=== PATIENT | male | born 1965 | race Caucasian/White ===

== ENCOUNTER 2019-08-20 16:14 | Emergency (ER) | payer OTHER, SELFPAY ==
[2019-08-20] VITALS (8 sets, daily range): BP systolic 99–165; BP diastolic 70–92; PULSE 80–117; RESP 15–25; TEMP 36.6; O2SAT 92–100
--- NOTE | ~2019-08-20 | CT_ITS ---
EXAMINATION: CT brain wo con INDICATION: Left arm weakness, fall COMPARISON: None TECHNIQUE: Standard unenhanced head CT. The dose-length product (DLP) was 681.00 mGy-cm. The mA was a djusted according to patient size. Iterative reconstruction technique was employed. FINDINGS: There is no intracranial hemorrhage or acute infarction. There is a 2.2 x 2.1 cm cystic mas s in the right frontal lobe with surrounding vasogenic edema. There is a tiny crescentic hyperattenua ting component along the inferior margin of the mass. The ventricles are normal. There is no abnormal mass effect or midline shift. The basal cisterns are patent. The orbits are normal. The paranasal si nuses, mastoids and calvarium are normal. IMPRESSION: 1. Cystic mass of the right frontal lobe with surrounding vasogenic edema, consistent with primary or metastatic neoplasm. These findings were discussed with Dr. Santa Lindsay MD in the Emergency De partment at 1826 hours on 08/20/2019. Reviewed, dictated and finalized at location A. IMPRESSION: 1. Cystic mass of the right frontal lobe with surrounding vasogenic edema, cons istent with primary or metastatic neoplasm. These findings were discussed with Dr. Santa Lindsay MD in the Emergency Department at 1826 hours on 08/20/2019 .
--- NOTE | ~2019-08-20 | XR_ITS ---
EXAMINATION: XR chest 1V portable INDICATION: Hypoxia TECHNIQUE: Portable AP chest at 1920 hours COMPARISON: None available FINDINGS: There is a 3.5 cm mass in the right midlung zone. The lungs are free of acute opacities. Th ere is no pleural effusion or pneumothorax. The cardiomediastinal silhouette is normal. Surgical clip s are noted in the upper abdomen. IMPRESSION: 1. 3.5 cm mass of the right midlung zone. Given the intracranial mass noted on today's CT, finding is most concerning for primary bronchogenic carcinoma. Reviewed, dictated and finalized at location A.
--- NOTE | ~2019-08-20 | CT_ITS ---
EXAMINATION: CT cervical spine wo con DATE: 08/20/2019 18:14 INDICATION: Left arm weakness TECHNIQUE: Computed tomography (CT) of the cervical spine was performed without intravenous contrast. The dose-length product (DLP) was 245.36 mGy-cm. Automated exposure control and iterative reconstruc tion technique were employed. COMPARISON: None FINDINGS: There is no fracture, dislocation, or subluxation. There is moderate loss of intervertebral disc space height at C3-4 and C6-7. The odontoid is intact. 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 There is fibrous union of the posterior C1 arch. The prevertebral soft tissues a re normal. IMPRESSION: 1. Advanced degenerative change at C2-3 without acute findings. Reviewed, dictated and finalized at location A.
--- NOTE | ~2019-08-20 | XR_ITS ---
EXAMINATION: XR forearm LT 2V INDICATION: Left forearm pain TECHNIQUE: Three views of the left forearm are obtained. COMPARISON: None available FINDINGS: There is no fracture, dislocation, or subluxation. The bones, soft tissues, and joint space s are normal. IMPRESSION: 1. No acute osseous abnormality. Reviewed, dictated and finalized at location A.
--- NOTE | ~2019-08-20 | XR_ITS ---
EXAMINATION: XR humerus LT INDICATION: Left arm pain TECHNIQUE: Two views of the left humerus are obtained. COMPARISON: None available FINDINGS: There is no fracture, dislocation, or subluxation. The bones, soft tissues, and joint space s are normal. IMPRESSION: 1. No acute osseous abnormality. Reviewed, dictated and finalized at location A.
--- NOTE | 2019-08-20 17:06 | ED.GENADULT ---
HPI - General Adult General Chief complaint: Extremity Injury, Upper Stated complaint: Left Arm Numbness Time Seen by Provider: 08/20/19 16:51 Source: patient and family Mode of arrival: ambulatory Limitations: no limitations History of Present Illness HPI narrative: This patient is a 54 year old male with history of alcohol abuse, hypertension who presents for evaluation of left upper extremity weakness. Patient's daughter states patient was taken to [facility] yesterday for an evaluatio, of a fall. She states patient was found on kitchen floor yesterday and it was unclear how long he had been down. Patient states he does not remember when he fell. He states he had a CT scan of his brain and he was told he had a brain mass. His daughter brought him to [facility] because he was discharged and he still has left arm numbness and weakness. His weakness has been present since he was found on the floor yesterday. Related Data Home Medications Medication Instructions Recorded Confirmed amlodipine 08/20/19 baclofen mg 08/20/19 budesonide-formoterol [Symbicort] INHALATION 08/20/19 lisinopril 08/20/19 nortriptyline 08/20/19 pravastatin 08/20/19 Allergies Allergy/AdvReac Type Severity Reaction Status Date / Time No Known Allergies Allergy Verified 08/20/19 17:41 Review of Systems Review of Systems: All systems reviewed & are unremarkable except as noted in HPI and below Constitutional: Constitutional: Denies chills and Denies fever(s) Cardiovascular: Cardiovascular: Denies chest pain Respiratory: Respiratory: Denies cough and Denies dyspnea Gastrointestinal: Gastrointestinal: Denies abdominal pain, Denies diarrhea and Denies vomiting Musculoskeletal: Comments: left arm swelling, left arm numbnesss Neurologic: Reports focal weakness (left arm) [facility] Past Medical History Medical History (Updated 08/22/19 @ 00:00 by Salomón Pitts) Alcohol abuse Hypertension Social History Social History (Updated 08/20/19 @ 17:07 by Santa Lindsay MD) Smoking packs per day: 1 Smoking cigarettes per day: 20.0 Alcohol intake: current Alcohol use details: drinks daily Exam Const: General: no acute distress and alert Orientation/consciousness: patient oriented x3 HENMT: Head: normocephalic and atraumatic Mouth: Yes lip normal, Yes tongue normal and Yes oropharynx normal Teeth and gingiva: edentulous Throat: posterior oropharynx normal Eyes: Pupils: Equal, round and reactive pupils present EOM: EOMs intact bilaterally Neck: Neck: normal visual inspection Chest: Chest palpation & inspection: normal inspection of the chest and no tenderness Resp: Effort & Inspection: normal respiratory effort Auscultation: clear to auscultation bilaterally Cardio: Rate: regular rate Rhythm: regular rhythm GI: GI Palp: Yes Soft to palpation, No Tenderness to palpation present (GI), No Guarding due to palpation present (GI) and No Rigid due to palpation Skin: Other: bruising to left arm Neuro: General: patient oriented x3 and CN's II-XI intact bilaterally Cranial nerves: Yes Nystagmus not present Speech: normal speech Motor exam (neuro): Abnormal motor strength present (unable to lift left arm against gravity) Sensory Exam: Upper extremity sensory exam abnormal (left arm decreased sensation) Extrem: General: edema left (arm from hand up to shoulder) Psych: Mental Status: mental status grossly normal Course Consultations Consultation #1: I discussed the case with neurosurgery at [facility], Dr. Fernandez who accepts patient to neurosurgery floor Date: 08/20/19 Time: 19:20 Consultation #2: Patient is awaiting a bed at [facility] due to his brain mass for further evaluation. Care turned over to Dr. Lacy Date: 08/20/19 Time: 23:00 Vital Signs Vital signs: Vital Signs Temperature 97.9 F 08/20/19 16:33 Pulse Rate 108 H 08/20/19 16:33 Respiratory Rate 18 08/20/19 16:33 Blood Pressure
[2019-08-20 17:37] LABS: Basophils Absolute Auto 0.1 K/mm3 (0.0-0.1); Basophils Percent Auto 1.2 % (0.2-1.2); Eosinophils Absolute Auto 0.3 K/mm3 (0-0.3); Eosinophils Percent Auto 6.1 % (0-4.4); Hematocrit 34.5 % (42.0-52.0); Hemoglobin 11.6 g/dL (14.0-18.0); Lymphocytes Absolute Auto 1.32 K/mm3 (0.9-3.2); Mean Corpuscular HGB Conc 33.6 g/dl (32-36); Mean Corpuscular Hemoglobin 30.7 pg (26-34); Mean Corpuscular Volume 91.3 fl (80-100); Mean Platelet Volume 10.3 fl (7.4-10.4); Monocytes Absolute Auto 0.4 K/mm3 (0.1-0.6); Monocytes Percent Auto 7.2 % (2.6-8.5); Neutrophils Absolute Auto 2.9 K/mm3 (1.3-6.7); Neutrophils Percent Auto 58.5 % (45.5-73.1); Platelet Count Result 254 k/mm3 (150-375); Red Blood Count 3.78 M/mm3 (4.6-6.20); Red Cell Distribution Width 15.7 % (11.5-14.5); White Blood Count 4.9 K/mm3 (4.5-10.0)
[2019-08-20 17:50] LABS: Ethanol 219 mg/dL (<10); INR 0.9; Magnesium 1.4 mg/dL (1.6-2.3); Partial Thromboplastin Time 25.2 SECONDS (22.3-36.8); Prothrombin Time 11.6 Seconds (11.1-14.7)
[2019-08-20 17:51] LABS: Alanine Aminotransferase 43 U/L (4-50); Albumin Level 4.4 g/dL (3.5-5.1); Alkaline Phosphatase 83 U/L (38-126); Aspartate Amino Transferase 72 U/L (17-59); Bilirubin,Total 0.3 mg/dL (0.2-1.3); Blood Urea Nitrogen 15 mg/dL (9-20); Calcium 9.3 mg/dL (8.4-10.2); Carbon Dioxide 27 mmol/L (22-30); Chloride 108 mmol/L (98-107); Creatine Kinase 197 U/L (55-170); Estimated CRCL calculation 88 ml/min; Estimated Glomerular Filt Rate > 60; Glucose 133 mg/dL (75-110); Potassium 3.7 mmol/L (3.4-5.0); Sodium 144 mmol/L (137-145)
[2019-08-20] MEDS: NICOTINE (*PBKC) 21 MG PATCH 1 PATCH TRANSDERM (19:47)
[2019-08-20 19:54] LABS: Add Urine Microscopic? YES; Appearance Urine Clear (Clear); Bacteria Urine Trace /hpf; Bilirubin Urine Negative (Negative); Blood Urine Negative (Negative); Color Urine Yellow (Yellow); Glucose Urine UA Negative (Negative); Ketones Urine Negative (Negative); Leukocyte Esterase Ur Negative LEU/UL (Negative); Nitrate Urine Negative (Negative); Protein Urine 1+ mg/dL (Negative); RBC Urine 0-2 /hpf (0-2); Specific Grav Ur 1.015 (1.001-1.035); WBC Urine 0-3 /hpf
[2019-08-20] MEDS: LACTATED RINGERS 1,000 ML 999 ML IV CONT (19:56)
[2019-08-20 20:05] LABS: Amphetamine Screen Urine Negative (Negative); Barbiturate Screen Urine Negative (Negative); Benzodiazepines Screen Urine Negative (Negative); Cannabinoid Screen Urine Negative (Negative); Cocaine Screen Urine Negative (Negative); Methadone Screen Urine Negative (Negative); Opiate Screen Urine Negative (Negative); Phencyclidine Screen Urine Negative (Negative)
--- NOTE | 2019-08-21 00:20 | PC.NURSE ---
Called [facility] for updated ETA. ETA [id number]
[2019-08-21 00:22] VITALS: BP 162/93; PULSE 109; RESP 20; O2SAT 98
[2019-08-21 01:20] VITALS: BP 168/71; PULSE 99; RESP 18; O2SAT 100
--- NOTE | 2019-08-21 01:31 | PC.NURSE ---
pt left facility at this time via ems to [place]. thiamine still infusing into pt upon departure.
== END 2019-08-21 01:31 | disposition short-term general hospital (02) ==
PROVIDERS: Emergency Provider General Practice; PCP Physician Assistant
DX: G93.9 Disorder of brain, unspecified (principal); R53.1 Weakness; I10 Essential (primary) hypertension; F17.210 Nicotine dependence, cigarettes, uncomplicated; M47.812 Spondylosis without myelopathy or radiculopathy, cervical region; R91.8 Other nonspecific abnormal finding of lung field; F10.10 Alcohol abuse, uncomplicated; Y90.7 Blood alcohol level of 200-239 mg/100 ml
CPT/HCPCS: 36415; 70450; 71045; 72125; 73060; 73090; 80053; 80307; 81001; 82550; 83735; 85025; 85610; 85730; 96361; 96365; 96366; 99285; A9270; J3411; J3475; J7120; J7121

== ENCOUNTER 2020-01-27 18:23 | Emergency (ER) | payer OTHER, SELFPAY ==
--- NOTE | ~2020-01-27 | XR_ITS ---
EXAMINATION: XR chest 1V EXAM DATE: 01/27/2020 18:56 INDICATION: Cough. History lung cancer. TECHNIQUE: Portable AP frontal chest x-ray was obtained. Comparison is made to prior examination from 08/20/2019. FINDINGS: There is right midlung zone mass measuring about 2 cm. Does appear to be smaller than on th e previous examination. No evidence of acute airspace disease. No pneumothorax or pleural effusion. C ardiomediastinal silhouette is normal. There are no osseous abnormalities identified. IMPRESSION: Decrease in size of right midlung zone mass. No acute findings. Reviewed, dictated and finalized at location A.
[2020-01-27 18:30] VITALS: BP 151/76; PULSE 103; RESP 18; TEMP 36.2; O2SAT 100
--- NOTE | 2020-01-27 18:38 | PC.NURSE ---
Refuses to sit on stretcher. States I'm just here for my chest xray and I'm leaving.
--- NOTE | 2020-01-27 18:46 | ED.GENADULT ---
HPI - General Adult General Chief complaint: Upper Respiratory Infection Stated complaint: cancer patient, cough and cold symptoms Time Seen by Provider: 01/27/20 18:39 Source: patient and family Mode of arrival: ambulatory Limitations: no limitations History of Present Illness HPI narrative: Patient is 54 years old white male history of lung cancer, start on chemotherapy November 2019, last chemotherapy was 4 days ago. Been coughing over the last few days, his oncologist office told him to go and get chest x-ray to rule out the possibility of pneumonia. Patient insisted on not getting anything else except chest x-ray. And he wants as soon as possible. And he will not stay. Patient denying any fever, chills, nausea, vomiting, headache, sore throat, new shortness of breath Related Data Home Medications Medication Instructions Recorded Confirmed amlodipine 08/20/19 baclofen mg 08/20/19 budesonide-formoterol [Symbicort] INHALATION 08/20/19 lisinopril 08/20/19 nortriptyline 08/20/19 pravastatin 08/20/19 Allergies Allergy/AdvReac Type Severity Reaction Status Date / Time No Known Allergies Allergy Verified 01/27/20 18:38 Review of Systems Review of Systems: Narrative: CONSTITUTIONAL: Denies fever, chills, or sweats. EYES: Denies visual changes, redness, or discharge. ENT: Denies rhinorrhea, congestion, sore throat, or otalgia. CARDIOVASCULAR: Denies chest pain, palpitations, or edema. RESPIRATORY: Denies cough or dyspnea. GASTROINTESTINAL: Denies abdominal pain, nausea, vomiting, or diarrhea. GENITOURINARY: Denies dysuria or hematuria. SKIN: Denies rash or itching. MUSCULOSKELETAL: Denies back pain, joint pain, or myalgia. NEUROLOGIC: Denies headache, numbness, or weakness. PSYCHIATRIC: Denies anxiety or depression. PMFSH Past Medical History Medical History Alcohol abuse Hypertension Social History Social History Smoking packs per day: 1 Smoking cigarettes per day: 20.0 Alcohol intake: current Gender identity (if verbalized by the patient): Male Exam Narrative: Exam Narrative: General appearance: Well-developed, well-nourished Skin: Normal color Head: Normocephalic, nontraumatic Eyes: Clear conjunctiva ENT: Oropharynx normal, ears normal, nose normal Neck: Supple, nontender Chest and respiratory: Airway patent, no respiratory distress, no accessory muscle use, few scattered rhonchi and wheezing Heart: Regular rate/rhythm Abdomen: Soft, nontender, no organomegaly, quiet bowel sounds Vascular: Normal peripheral pulses, normal capillary refill. Musculoskeletal: Normal range of motion, nontender back Neurologic: Alert and oriented ?3, [employer] is normal as tested, no gross motor deficit Course Course Emergency Course: Stable Vital Signs Vital signs: Vital Signs Temperature 36.2 C L 01/27/20 18: Pulse Rate 103 H 01/27/20 18:30 Respiratory Rate 18 01/27/20 18:30 Blood Pressure 151/76 H 01/27/20 18:30 Pulse Oximetry 100 01/27/20 18:30 Temperature 36.2 C L 01/27/20 18:30 Pulse Rate 103 H 01/27/20 18:30 Respiratory Rate 18 01/27/20 18:30 Blood Pressure 151/76 H 01/27/20 18:30 Pulse Oximetry 100 01/27/20 18:30 Medical Decision Making MDM Narrative Medical decision making narrative: Currently patient under chemotherapy for lung cancer, was told by his oncologist office to go to the emergency room to rule out the possibility of pneumonia. Patient declined to get any blood work-up or any thing else except for chest x-ray. Chest x-ray showed no acute abnormality. Patient extremely happ
== END 2020-01-27 19:17 | disposition home or self-care (01) ==
PROVIDERS: Emergency Provider Emergency Medicine; PCP Physician Assistant
DX: R05 Cough (principal); C34.90 Malignant neoplasm of unspecified part of unspecified bronchus or lung; I10 Essential (primary) hypertension; F17.210 Nicotine dependence, cigarettes, uncomplicated
CPT/HCPCS: 71045; 99283